=== PATIENT | male | born 1955 | race Caucasian/White ===

== ENCOUNTER 2019-09-25 13:06 | Emergency (ER) | payer SELFPAY ==
[~2019-09-25] VITALS: Ht 177.8 cm; Wt 75.0 kg
[2019-09-25 15:00] VITALS: BP 128/70
== END 2019-09-25 15:17 | disposition left against medical advice (07) ==
LOC: ER 13:06
DX: F10.129 Alcohol abuse with intoxication, unspecified (principal); Y90.0 Blood alcohol level of less than 20 mg/100 ml
CPT/HCPCS: 99283